=== PATIENT | female | born 2000 | race Caucasian/White ===

== ENCOUNTER 2020-06-10 12:54 | Emergency (ER) | payer OTHER ==
[2020-06-10 13:03] VITALS: TEMP 98; BMI 39.7
[2020-06-10 14:27] LABS: BASO % 0.4 % (0-2.0); HEMATOCRIT 39.1 % (32.4-45.2); HEMOGLOBIN 13.1 GM/dL (10.7-15.3); LYMPH % 39.2 % (8-40); MCH 30.3 pg (25.7-33.7); MCHC 33.5 g/dl (32.0-36.0); MEAN CELL VOLUME 90.5 fl (80-96); MEAN PLT VOLUME 8.3 fl (7.5-11.1); MONO % 5.6 % (3.8-10.2); NEUT % 51.8 % (42.8-82.8); PLATELET COUNT 297 K/MM3 (134-434); RBC 4.32 M/mm3 (3.60-5.2); WHITE BLOOD COUNT 7.1 K/mm3 (4.0-10.0)
[2020-06-10 14:33] LABS: INR 1.03 (0.83-1.09); PROTHROMBIN TIME (PATIENT) 12.6 SEC (9.7-13.0)
[2020-06-10 14:47] LABS: CHLORIDE 108 mmol/L (98-107); POTASSIUM 4.2 mmol/L (3.5-5.1); SODIUM 141 mmol/L (136-145)
[2020-06-10 14:49] LABS: ALBUMIN 3.8 g/dl (3.4-5.0); ANION GAP 4 MMOL/L (8-16); BLOOD UREA NITROGEN 14.7 mg/dL (7-18); CALCIUM 9.2 mg/dL (8.5-10.1); CO2 30 mmol/L (21-32)
[2020-06-10 14:50] LABS: GLUCOSE,RANDOM 86 mg/dL (74-106)
[2020-06-10 14:53] LABS: SGPT/ALT 22 U/L (13-61)
[2020-06-10 14:54] LABS: BILIRUBIN,TOTAL 0.2 mg/dL (0.2-1); CREATININE 0.7 mg/dL (0.55-1.3); SGOT/AST 21 U/L (15-37); TOT PROT 7.8 g/dl (6.4-8.2)
[2020-06-10 14:55] LABS: ALK PHOS 105 U/L (45-117)
[2020-06-10 15:37] LABS: EPI CELLS >36 /uL (0-25.1); HYALINE CASTS 2 /uL (0-3.1); URINE APPEARANCE CLOUDY; URINE BACTERIA >9,000 /uL (0-1359); URINE BILIRUBIN NEGATIVE (NEGATIVE); URINE COLOR YELLOW; URINE GLUCOSE (UA) NEGATIVE (NEGATIVE); URINE KETONE NEGATIVE (NEGATIVE); URINE LEUK ESTERASE TRACE (NEGATIVE); URINE NITRITE POSITIVE (NEGATIVE); URINE PROTEIN NEGATIVE (NEGATIVE); URINE RBC 16 /uL (0-23.9); URINE UROBILINOGEN 0.2 mg/dL (0.2-1.0); URINE WBC 30 /uL (0-25.8)
[2020-06-10 16:28] VITALS: BP 133/62; PULSE 78
== END 2020-06-10 16:27 | disposition home or self-care (01) ==
LOC: JER 12:54
DX: N30.01 Acute cystitis with hematuria (principal)
CPT/HCPCS: 36415; 76830-TC; 80053; 81003; 84702; 85025; 85610; 87086; 87186; 99284-25

== ENCOUNTER 2020-06-17 18:15 | Emergency (ER) | payer OTHER ==
[2020-06-17 18:23] VITALS: BP 150/83; PULSE 102; TEMP 98.7; BMI 35.1
[2020-06-17] MEDS ORDERED: ACETAMINOPHEN 325 MG TABLET (FP) PO ONE (21:52)
[2020-06-17] MEDS ORDERED: CEFTRIAXONE 1 GM in DEXTROSE 5%-WATER - 50 ML IVPB ONE (21:53)
[2020-06-17] MEDS ORDERED: CEFTRIAXONE 1 GM/50 ML BAG ONE (21:57)
[2020-06-17] MEDS ORDERED: ACETAMINOPHEN 325 MG TABLET (FP) ONE (21:57)
[2020-06-17 22:11] LABS: BASO % 0.3 % (0-2.0); EOS % 2.3 % (0-4.5); HEMATOCRIT 40.6 % (32.4-45.2); HEMOGLOBIN 13.9 GM/dL (10.7-15.3); LYMPH % 36.1 % (8-40); MCH 30.9 pg (25.7-33.7); MCHC 34.2 g/dl (32.0-36.0); MEAN CELL VOLUME 90.4 fl (80-96); MEAN PLT VOLUME 8.3 fl (7.5-11.1); MONO % 4.8 % (3.8-10.2); NEUT % 56.5 % (42.8-82.8); PLATELET COUNT 274 K/MM3 (134-434); RBC 4.49 M/mm3 (3.60-5.2); RDW 13.1 % (11.6-15.6); WHITE BLOOD COUNT 9.2 K/mm3 (4.0-10.0)
[2020-06-17 22:25] LABS: POTASSIUM 3.9 mmol/L (3.5-5.1)
[2020-06-17 22:27] LABS: CALCIUM 9.1 mg/dL (8.5-10.1)
[2020-06-17 22:28] LABS: ALBUMIN 4.2 g/dl (3.4-5.0); BLOOD UREA NITROGEN 10.6 mg/dL (7-18)
[2020-06-17 22:31] LABS: CREATININE 0.7 mg/dL (0.55-1.3)
[2020-06-17 22:32] LABS: BILIRUBIN,TOTAL 0.5 mg/dL (0.2-1); TOT PROT 7.8 g/dl (6.4-8.2)
[2020-06-17 22:35] LABS: EPI CELLS >36 /uL (0-25.1); HYALINE CASTS 3 /uL (0-3.1); PH,URINE 5.5 (5.0-8.0); URINE APPEARANCE Error; URINE BACTERIA 1265 /uL (0-1359); URINE BILIRUBIN NEGATIVE (NEGATIVE); URINE COLOR YELLOW; URINE GLUCOSE (UA) NEGATIVE (NEGATIVE); URINE KETONE 4+ (NEGATIVE); URINE LEUK ESTERASE TRACE (NEGATIVE); URINE NITRITE NEGATIVE (NEGATIVE); URINE PROTEIN 1+ (NEGATIVE); URINE RBC 1764 /uL (0-23.9); URINE UROBILINOGEN 0.2 mg/dL (0.2-1.0); URINE WBC 37 /uL (0-25.8)
[2020-06-17] MEDS ORDERED: LACTATED RINGERS SOLUTION 1000 ML INFUS.BAG IV ONE (22:43)
== END 2020-06-18 00:37 | disposition home or self-care (01) ==
LOC: JER 18:15
DX: N93.9 Abnormal uterine and vaginal bleeding, unspecified (principal); N39.0 Urinary tract infection, site not specified
CPT/HCPCS: 36415; 80053; 81003; 85025; 99285-25